=== PATIENT | male | born 1970 | race African-American/Black ===

== ENCOUNTER 2017-07-05 01:34 | Emergency (ER) | payer MEDICAID ==
[2017-07-05] VITALS (7 sets, daily range): BP systolic 113–138; BP diastolic 66–88
[~2017-07-05] VITALS: Ht 177.8 cm; Wt 67.6 kg
[2017-07-05] MEDS ORDERED: MIRTAZAPINE15 M3 ORAL (01:41)
[2017-07-05] MEDS ORDERED: EDURANT25 MG PO (01:41)
[2017-07-05] MEDS ORDERED: ZITHROMAX200 MG/5 M ORAL (01:41)
[2017-07-05] MEDS ORDERED: PREZCOBIX 8001 EACH PO (01:41)
[2017-07-05] MEDS ORDERED: SULFAMETHOXAZO1 EAC2 ORAL (01:41)
[2017-07-05] MEDS ORDERED: TIVICAY50 MG ORAL (01:41)
[2017-07-05 02:44] LABS: BASOPHILS % (AUTO) 2.6 % (0.0-2.0); EOSINOPHILS % (AUTO) 4.2 % (0.0-3.0); HEMATOCRIT 46.9 % (42.0-52.0); HEMOGLOBIN 16.6 G/DL (14.2-18.0); LYMPHOCYTES % (AUTO) 28.2 % (20.0-45.0); MEAN CORPUSCULAR VOLUME 91 FL (80-99); MONOCYTES % (AUTO) 10.3 % (1.0-10.0); NEUTROPHILS % (AUTO) 54.7 % (45.0-75.0); PLATELET COUNT 265 K/UL (150-450); RED BLOOD COUNT 5.16 M/UL (4.70-6.10); RED CELL DISTRIBUTION WIDTH 10.3 % (11.6-14.8); WHITE BLOOD COUNT 5.6 K/UL (4.8-10.8)
[2017-07-05 02:53] LABS: ANION GAP 13 mmol/L (5-15); BLOOD UREA NITROGEN 16 mg/dL (7-18); CALCIUM 9.5 MG/DL (8.5-10.1); CARBON DIOXIDE 24 MMOL/L (21-32); CHLORIDE 103 MMOL/L (98-107); CREATININE 1.3 MG/DL (0.55-1.30); POTASSIUM 3.3 MMOL/L (3.5-5.1); SODIUM 140 MMOL/L (136-145)
[2017-07-05 03:07] LABS: ALANINE AMINOTRANSFERASE 31 U/L (12-78); ALBUMIN 4.5 G/DL (3.4-5.0); ALKALINE PHOSPHATASE 89 U/L (46-116); ASPARTATE AMINO TRANSFERASE 82 U/L (15-37); BILIRUBIN,TOTAL 1.1 MG/DL (0.2-1.0)
--- NOTE | 2017-07-05 03:43 | Emergency Room Report ---
History of Present Illness General Chief Complaint: Behavioral Complaint Source: Patient (Reji Saravia) Present Illness HPI Patient is a 47-year-old male who presented emergency department after calling EMS. Patient stated that he had been recently hospitalized [facility] was discharged to a [id number]. The patient was noted to have subsequent increased paranoid thoughts. Patient states that he has not used methamphetamine for approximate 4 days. The patient reports having been upset with people at his [id number] (Reji Saravia) Allergies: Coded Allergies: No Known Allergies (Unverified , 07/05/17) Patient History Past Medical History: see triage record Reviewed Nursing Documentation: PMH: Agreed; PSxH: Agreed (Reji Saravia) Nursing Documentation-PMH Past Medical History: No History, Except For Hx Cardiac Problems: No - HIV+ (Reji Saravia) Review of Systems All Other Systems: negative except mentioned in HPI (Reji Saravia) Physical Exam Vital Signs Date Time Temp Pulse Resp B/P (MAP) Pulse Ox O2 Delivery O2 Flow Rate FiO2 07/05/17 01:34 98.3 110 16 143/100 98 Room Air 98.2 Sp02 EP Interpretation: reviewed, normal General Appearance: alert/responsive, no apparent distress, GCS 15, non-toxic Head: atraumatic Eyes: normal eye exam, PERRL, EOMI, lids + conjunctiva normal ENT: hearing intact, no angioedema Neck: supple/symm/no masses, no meningismus Respiratory: effort normal, no wheezing, chest symmetrical Cardiovascular: regular rate, rhythm, no edema Cardiovascular #2: 2+ carotid (R), 2+ carotid (L), 2+ dorsalis pedis (R), 2+ dorsalis pedis (L) Gastrointestinal: non-tender, no mass, non-distended, no rebound/guarding, normal bowel sounds Musculoskeletal: gait & station normal, digits & nails normal, strength & tone normal, normal ROM, non-tender Neurologic: normal inspection, CN II-XII intact, oriented x3, sensory intact, normal speech Psychiatric: normal inspection, judgment & insight normal, memory normal, mood normal, no suicidal/homicidal ideation, affect normal Skin: no rash, well hydrated Lymphatic: normal inspection (Reji Saravia) Medical Decision Making Diagnostic Impression: Primary Impression: Substance abuse Additional Impression: Medical clearance for psychiatric admission ER Course Patient presented for evaluation. Differential diagnoses include substance abuse, psychosis, bipolar disorder, depression, malingering. Because of complexity of patient's case laboratory testing and imaging studies were ordered. Laboratory testing showed evidence of urine drug screen positive for amphetamine and marijuana.. Given the patient's statement that he had not used methamphetamine greater than 4 days this is unlikely to be true. Patient is medically cleared for psychiatric referral. Labs Test 07/05/17 02:15 07/05/17 02:30 Urine Opiates Screen Negative (NEGATIVE) Urine Barbiturates Screen Negative (NEGATIVE) Phencyclidine (PCP) Screen Negative (NEGATIVE) Urine Amphetamines Screen Positive (NEGATIVE) Urine Benzodiazepines Screen Negative (NEGATIVE) Urine Cocaine Screen Negative (NEGATIVE) Urine Marijuana (THC) Screen Positive (NEGATIVE) White Blood Count 5.6 K/UL (4.8-10.8) Red Blood Count 5.16 M/UL (4.70-6.10) Hemoglobin 16.6 G/DL (14.2-18.0) Hematocrit 46.9 % (42.0-52.0) Mean Corpuscular Volume 91 FL (80-99) Mean Corpuscular Hemoglobin 32.2 PG (27.0-31.0) Mean Corpuscular Hemoglobin Concent 35.4 G/DL (32.0-36.0) Red Cell Distribution Width 10.3 % (11.6-14.8) Platelet Count 265 K/UL (150-450) Mean Platelet Volume 7.8 FL (6.5-10.1) Neutrophils (%) (Auto) 54.7 % (45.0-75.0) Lymphocytes (%) (Auto) 28.2 % (20.0-45.0) Monocytes (%) (Auto) 10.3 % (1.0-10.0) Eosinophils (%) (Auto) 4.2 % (0.0-3.0) Basophils (%) (Auto) 2.6 % (0.0-2.0) Sodium Level 140 MMOL/L (136-145) Potassium Level 3.3 MMOL/L (3.5-5.1) Chloride Level 103 MMOL/L (98-107) Carbon Dioxide Level 24 MMOL/L (21-32) Anion Gap 13 mmol/L (5-15) Blood Urea Nitrogen 16 mg/dL (7-18) Creatinine 1.3 MG/DL (0.55-1.30) Estimat Glomerular Filtration Rate > 60 mL/min (>60) Glucose Level 113 MG/DL (74-106) Calcium Level 9.5 MG/DL (8.5-10.1) Total Bilirubin 1.1 MG/DL (0.2-1.0) Aspartate Amino Transf (AST/SGOT) 82 U/L (15-37) Alanine Aminotransferase (ALT/SGPT) 31 U/L (12-78) Alkaline Phosphatase 89 U/L (46-116) Total Protein 9.0 G/DL (6.4-8.2) Albumin 4.5 G/DL (3.4-5.0) Globulin 4.5 g/dL Albumin/Globulin Ratio 1.0 (1.0-2.7) Salicylates Level 2.5 ug/mL (2.8-20) Acetaminophen Level < 2 MCG/ML (10-30) Serum Alcohol < 3 mg/dL (Reji Saravia) ER Course Patient has been medically cleared by previous physician Did have evidence of substance abuse in the system Given his psychiatric complaints is requiring further outpatient psychiatric evaluation (Ariana Munguia DO) ER Course Please see above history and physical. Patient was evaluated by the psychiatric evaluation team. The patient was placed on a 5150. Patient calm and states he doesn't need any medication at this time. Awaiting placement. Signed out to Dr. Lema. (Kurtis Rojo M.D.) Last Vital Signs Date Time Temp Pulse Resp B/P (MAP) Pulse Ox O2 Delivery O2 Flow Rate FiO2 07/05/17 01:45 98.2 88 16 138/88 99 Room Air 98.2 Status: improved (Reji Saravia) Status: improved (Kurtis Rojo M.D.) Reevaluation Impression Patient not thought to be suicidal, per Dr. Vizcaino he is seeking secondary gain. I will defer to Dr. Vizcaino, as patient is running around the department acting out and ran out of the ER with only a gown on. Per her recommendations we will allow him to go. (FLOYD HENRIQUEZ M.D) Disposition: HOME, SELF-CARE Condition: Stable Physician Consult: Dr. Vizcaino (FLOYD HENRIQUEZ M.D) Referrals: NOT CHOSEN IPA/,REFERRING (PCP) Reji Saravia July 05, 2017 03:43 Ariana Munguia DO July 05, 2017 08:15 Kurtis Rojo M.D. July 05, 2017 23:26 FOLYD HENRIQUEZ M.D July 06, 2017 11:50
[2017-07-05 04:14] LABS: BILIRUBIN,DIRECT 0.2 MG/DL (0.0-0.3)
[2017-07-06 03:04] VITALS: BP 108/69
[2017-07-06 06:38] VITALS: BP 99/68
[2017-07-06 09:30] VITALS: BP 108/72
[2017-07-06 11:30] VITALS: BP 110/76
--- NOTE | 2017-07-07 16:00 | Consultation ---
DATE OF CONSULTATION: 07/06/2017 CONSULTING PHYSICIAN: Gabby Vizcaino M.D. HISTORY OF PRESENT ILLNESS: The patient is a 47-year-old male who was admitted to the hospital on 5150 for danger to self. He was recently hospitalized at [facility] and was discharged from board and care apparently by using drugs. The patient stated that he has not seen a physician in our ER and he has not been getting any medical attention from the doctors. The patient appeared irritable and stated that he needed to go to [facility]. He stated that he was suicidal and he stated that he in his life only one time which was several days ago. When I confronted him about being seen by the doctors according to documentation, he became very angry. He attempted to hit this physician, however, the ER doctor was seen outside the room and held him back. The patient became very agitated and stated that he wanted to leave the hospital. He walked out of the emergency room with the hospital gown and the hospital and called 911 and stated that he would not leave the hospital now, he is suicidal, and needs help. The patient is very dramatic, yelling, screaming, and hitting the staff using profanity. At some point, he took off his gown. The security was not able to touch him and he was refusing to leave the hospital premises and the police came back, placed the patient back on 5150 hold after I lifted the hold. I do not believe the patient was an imminent danger to self or others. PAST PSYCHIATRIC HISTORY: He has an extensive history of drug use and psychotic disorder possibly due to using drugs. He has personality disorder, specifically borderline and narcissistic, and antisocial traits. MEDICAL HISTORY: Significant for HIV. ALLERGIES: No known drug allergies. MENTAL STATUS EXAMINATION: The patient is oriented times self, place, and situation. Mood is agitated. Affect is constricted, congruent mood. Thought process is concrete. Thought content, no suicidal or homicidal ideation. No psychotic symptoms. ASSESSMENT: [place] I: Crystal meth abuse. AXIS II: Borderline cluster B personality disorder. AXIS III: HIV. AXIS IV: Low to moderate. AXIS V: 60. PLAN: 1. We will lift 5150. 2. The patient will be discharged. 3. The patient was provided with . Gabby Vizcaino M.D. DR: Ayo JOB#: [id number] CC:
== END 2017-07-06 11:30 ==
LOC: EDSEX 01:34 → EDBD 01:34 → EMR 02:21
DX: F19.10 Other psychoactive substance abuse, uncomplicated (principal)
CPT/HCPCS: 36415; 80053; 80307; 80329; 82248; 85025; 99284

== ENCOUNTER 2017-07-06 12:56 | Emergency (ER) | payer MEDICAID ==
[~2017-07-06] VITALS: Ht 175.3 cm; Wt 74.8 kg
[~2017-07-06 12:56] MED LIST: EDURANT25 MG PO; MIRTAZAPINE15 M3 ORAL; PREZCOBIX 8001 EACH PO; SULFAMETHOXAZO1 EAC2 ORAL; TIVICAY50 MG ORAL; ZITHROMAX200 MG/5 M ORAL
[2017-07-06 13:07] VITALS: BP 105/74
[2017-07-06 15:36] VITALS: BP 105/74
--- NOTE | 2017-07-06 21:18 | Emergency Room Report ---
History of Present Illness General Chief Complaint: Behavioral Complaint Source: Patient Present Illness HPI 47-year-old male presents ED for evaluation. Patient brought in by EMS. Patient states he is suicidal and wants to hurt himself. Patient placed on 5150 by [employer]. Patient states he was just released from here earlier today. Patient states he was not evaluated by anyone and discharged. Patient states he feels unsafe. Denies hearing voices. Denies drug use. No other aggravating relieving factors. Denies any other associated symptoms Allergies: Coded Allergies: No Known Allergies (Unverified , 07/05/17) Patient History Past Medical History: psych hx Past Surgical History: none Pertinent Family History: none Social History: Denies: smoking, alcohol use, drug use Immunizations: UTD Reviewed Nursing Documentation: PMH: Agreed; PSxH: Agreed Nursing Documentation-PMH Past Medical History: No History, Except For Hx Cardiac Problems: No - HIV+ History Of Psychiatric Problem: Yes Review of Systems All Other Systems: negative except mentioned in HPI Physical Exam Vital Signs Date Time Temp Pulse Resp B/P (MAP) Pulse Ox O2 Delivery O2 Flow Rate FiO2 07/06/17 12:57 97.9 91 18 105/74 98 Room Air 97.9 Sp02 EP Interpretation: reviewed, normal General Appearance: no apparent distress, alert, GCS 15, non-toxic Head: normocephalic, atraumatic Eyes: bilateral eye normal inspection, bilateral eye PERRL ENT: hearing grossly normal, normal pharynx, no angioedema, normal voice Neck: full range of motion, supple/symm/no masses Respiratory: chest non-tender, lungs clear, normal breath sounds, speaking full sentences Cardiovascular #1: regular rate, rhythm, no edema Cardiovascular #2: 2+ carotid (R), 2+ carotid (L), 2+ radial (R), 2+ radial (L) , 2+ dorsalis pedis (R), 2+ dorsalis pedis (L) Gastrointestinal: normal bowel sounds, non tender, soft, non-distended, no guarding, no rebound Rectal: deferred Genitourinary: normal inspection, no CVA tenderness Musculoskeletal: back normal, gait/station normal, normal range of motion, non- tender Neurologic: alert, oriented x3, responsive, motor strength/tone normal, sensory intact, speech normal Psychiatric: judgement/insight normal, memory normal, mood/affect normal, anxious Reflexes: 3+ bicep (R), 3+ bicep (L), 3+ tricep (R), 3+ tricep (L), 3+ knee (R) , 3+ knee (L) Skin: normal color, no rash, warm/dry, well hydrated Lymphatic: no adenopathy Medical Decision Making Diagnostic Impression: Primary Impression: Behavioral change ER Course Hospital Course 47-year-old male presents ED stating he wants to hurt himself. Differential diagnoses include: withdrawal symtpoms, overdose of psychiatric medications, drug ingestion, sepsis Clinical course Patient placed on chair. After initial history and physical exam reveals male in no acute distress. Patient does appear anxious. Patient is maintaining good eye contact. Does appear agitated. Patient states he was not evaluated by anyone in thrown out I reviewed EMR. Patient was seen here yesterday and kept overnight for observation. Patient show no evidence of suicidal or homicidal ideation. Patient was evaluated by psychiatry this morning Dr. Vizcaino who do not believe patient was danger to himself. Symptoms consistent with personality disorder 5150 hold was released Explained these findings to the patient. Patient denies being evaluated by anyone. Dr Vizcaino again evaluated the patient and did not believe patient is a danger to himself. I agree with her assessment I explained these findings to the patient. Patient became very upset and walked out of hospital. patient is no longer on 5150 hold i. I feel this is a highly complex case requiring extensive working including EKG/Rhythm strip, Xray/CT/US, Blood/urine lab work, repeat exams while in ED, and administration of strong opiates/narcotics for pain control, admission to hospital or close patient follow up. Diagnosis - behavioral disorder patient eloped Last Vital Signs Date Time Temp Pulse Resp B/P (MAP) Pulse Ox O2 Delivery O2 Flow Rate FiO2 07/06/17 15:36 97.9 18 105/74 98 Room Air 97.9 07/06/17 12:57 91 Status: improved Disposition: ELOPED Condition: Stable Referrals: NOT CHOSEN IPA/,REFERRING (PCP) Elias Ly MD July 06, 2017 21:18
--- NOTE | 2017-07-07 04:15 | Discharge Summary ---
DATE OF ADMISSION: 07/06/2017 DATE OF DISCHARGE: 07/06/2017 The patient was just discharged from the ER lifted. The patient walked out of the ER before the discharge paperwork is prepared. The patient again by [employer]. At the time of discharge, the patient is not an imminent danger to self or others. The patient will be discharged from the ER with referral as the patient is not suicidal or homicidal. Discussed with Dr. Ly. Gabby Vizcaino M.D. DR: BRYAN JOB#: [id number] CC:
== END 2017-07-06 15:36 | disposition left against medical advice (07) ==
LOC: EMR 13:32
DX: F91.9 Conduct disorder, unspecified (principal)
CPT/HCPCS: 99284